=== PATIENT | male | born 1935 | race Caucasian/White ===

== ENCOUNTER 2017-07-14 15:36 | Emergency (ER) | payer OTHER ==
[~2017-07-14] VITALS: Ht 170.2 cm; Wt 73.9 kg
[~2017-07-14 15:36] MED LIST: ALPRAZOLAM 0.50.5 MG PO; AMITRIPTYLINE H25 M2 PO; ASPIRIN EC81 M1 PO; BENAZEPRIL HCL40 MG PO; FISH OIL SOFTG1 EACH PO; FOLIC ACID 40400 MC1 PO; PLAVIX 75 MG TA75 M1 PO; SIMVASTATIN80 MG PO; VITAMINC500 PO
[2017-07-14] MEDS ORDERED: ATORVASTATIN CA40 MG PO (15:49)
[2017-07-14 16:18] LABS: ABSOLUTE BASOPHILS 0.1 thou/uL (0.0-0.2); ABSOLUTE EOSINOPHILS 0.4 thou/uL (0.0-0.7); ABSOLUTE LYMPHOCYTES 1.6 thou/uL (0.8-5.3); ABSOLUTE MONOCYTES 0.7 thou/uL (0.0-1.2); ABSOLUTE NEUTROPHILS 3.7 thou/uL (1.6-8.1); BASOPHILS 1.6 %; EOSINOPHILS 6.9 %; HEMATOCRIT 43.2 % (42.0-52.0); HEMOGLOBIN 14.7 gm/dL (14.0-18.0); MONOCYTES 10.6 %; MPV 9.5 fl. (7.2-11.1); NUCLEATED RBCS 0 /100WBC; PLATELET COUNT* 170 thou/uL (150-400); POLYS 56.9 %; RBC 4.59 mil/uL (4.50-6.00); RDW-CV 13.1 % (10.5-14.5); WBC 6.6 thou/uL (4.0-11.0)
[2017-07-14 16:31] LABS: APTT 26.6 Seconds (25.0-31.3); CREATININE 1.3 mg/dL (0.6-1.3); POTASSIUM 3.9 mmol/L (3.5-5.1); PROTIME 9.8 Seconds (9.20-11.50)
[2017-07-14 16:35] LABS: ALBUMIN 3.5 g/dL (3.4-5.0); TOTAL BILIRUBIN 0.3 mg/dL (<0.1-1.0); TOTAL PROTEIN 6.7 g/dL (6.4-8.2)
[2017-07-14 16:38] LABS: URINE BILIRUBIN NEGATIVE (Negative); URINE BLOOD TRACE (Negative); URINE CLARITY CLEAR; URINE COLOR YELLOW; URINE GLUCOSE-RANDOM NEGATIVE (Negative); URINE KETONES NEGATIVE (Negative); URINE LEUKOCYTES NEGATIVE (Negative); URINE NITRITE NEGATIVE (Negative); URINE PROTEIN NEGATIVE (Negative); URINE SPECIFIC GRAVITY >= 1.030 (1.005-1.030); URINE UROBILINOGEN 0.2 E.U./dl (0.2-1.0)
[2017-07-14] MEDS ORDERED: PREDNISONE 10 M10 MG PO (18:26)
[2017-07-14] MEDS ORDERED: NORCO 5-325 TA1 EACH PO (18:26)
[2017-07-14 18:50] VITALS: BP 183/88
--- NOTE | 2017-07-15 10:52 | EKG ---
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 07/15/17 1052 1618 1618 Rafael Camara MD, FACC /EPI
== END 2017-07-14 18:51 | disposition home or self-care (01) ==
LOC: M.ERS 15:36
PROVIDERS: Physician Assistant
DX: M54.42 Lumbago with sciatica, left side (principal); L40.9 Psoriasis, unspecified; M19.90 Unspecified osteoarthritis, unspecified site; E78.00 Pure hypercholesterolemia, unspecified; I10 Essential (primary) hypertension; G25.81 Restless legs syndrome; G43.909 Migraine, unspecified, not intractable, without status migrainosus; I71.4 Abdominal aortic aneurysm, without rupture; E78.5 Hyperlipidemia, unspecified; Z90.49 Acquired absence of other specified parts of digestive tract

== ENCOUNTER 2017-07-28 12:21 | Emergency (ER) | payer OTHER ==
[~2017-07-28] VITALS: Ht 152.4 cm; Wt 77.4 kg
[~2017-07-28 12:21] MED LIST changes: +ATORVASTATIN CA40 MG PO; +NORCO 5-325 TA1 EACH PO; +PREDNISONE 10 M10 MG PO
[2017-07-28 13:22] LABS: HEMATOCRIT 43.9 % (42.0-52.0); HEMOGLOBIN 14.8 gm/dL (14.0-18.0); MCHC 33.7 g/dL (28.0-37.0); MCV 94.9 fL (80.0-100.0); MPV 9.3 fl. (7.2-11.1); NUCLEATED RBCS 0 /100WBC; PLATELET COUNT* 161 thou/uL (150-400); RBC 4.63 mil/uL (4.50-6.00); RDW-CV 13.3 % (10.5-14.5)
[2017-07-28 13:29] LABS: ANION GAP 9 mmol/L (7-16); BUN 17 mg/dL (7-18); CALCIUM 8.4 mg/dL (8.5-10.1); CHLORIDE 109 mmol/L (98-107); CO2 26 mmol/L (21-32); CREATININE 1.1 mg/dL (0.6-1.3); GLUCOSE 125 mg/dL (70-99); POTASSIUM 3.3 mmol/L (3.5-5.1); SODIUM 144 mmol/L (136-145)
[2017-07-28 13:43] LABS: ALBUMIN 2.9 g/dL (3.4-5.0); ALKALINE PHOSPHATASE 82 U/L (46-116); NT-PRO BRAIN NAT PEPTIDE 605 pg/mL (<300); SGOT 34 U/L (15-37); SGPT 53 U/L (30-65); TOTAL BILIRUBIN 0.5 mg/dL (<0.1-1.0); TOTAL PROTEIN 6.2 g/dL (6.4-8.2); TROPONIN-I LEVEL <0.06 ng/mL (<0.06)
[2017-07-28 13:45] LABS: ABSOLUTE LYMPHOCYTES 1.2 thou/uL (0.8-5.3); ABSOLUTE MONOCYTES 0.5 thou/uL (0.0-1.2); ABSOLUTE NEUTROPHILS 11.3 thou/uL (1.6-8.1)
[2017-07-28 13:46] LABS: PLATELET ESTIMATE ADEQUATE; TOXIC GRANULATION 1+
[2017-07-28 14:15] LABS: INFLUENZA A ANTIGEN None Detected (None Detect)
[2017-07-28 15:39] LABS: URINE BILIRUBIN NEGATIVE (Negative); URINE BLOOD NEGATIVE (Negative); URINE CLARITY CLEAR; URINE COLOR YELLOW; URINE GLUCOSE-RANDOM TRACE (Negative); URINE KETONES NEGATIVE (Negative); URINE LEUKOCYTES-REFLEX NEGATIVE (Negative); URINE NITRITE-REFLEX NEGATIVE (Negative); URINE PROTEIN NEGATIVE (Negative); URINE SPECIFIC GRAVITY 1.025 (1.005-1.030)
[2017-07-28] MEDS ORDERED: VENTOLIN HFA 1818 GM INH (16:05)
[2017-07-28] MEDS ORDERED: MUCINEX DM ER1 EACH PO (16:05)
[2017-07-28] MEDS ORDERED: TESSALON PERLE100 MG PO (16:05)
[2017-07-28 16:16] VITALS: BP 178/78
== END 2017-07-28 16:23 | disposition home or self-care (01) ==
LOC: M.ERS 12:21
PROVIDERS: Physician Assistant
DX: J11.1 Influenza due to unidentified influenza virus with other respiratory manifestations (principal); R10.30 Lower abdominal pain, unspecified; J40 Bronchitis, not specified as acute or chronic; M19.90 Unspecified osteoarthritis, unspecified site; I10 Essential (primary) hypertension; E78.00 Pure hypercholesterolemia, unspecified; E78.5 Hyperlipidemia, unspecified; Z98.890 Other specified postprocedural states

== ENCOUNTER → 2017-08-23 | Outpatient (CLI) | payer OTHER ==
[~2017-08-23] MED LIST changes: +BENTYL 20 MG TA20 M1 PO; +COLACE100 MG PO; +FLAGYL500 MG PO; +KEFLEX500 M2 PO; +MIRALAX17 G1 PO; +MUCINEX DM ER1 EACH PO; +NEURONTIN 300300 M1 PO; +PROTONIX40 M1 PO; +TESSALON PERLE100 MG PO; +VENTOLIN HFA 1818 GM INH
== END ==
LOC: M.ULTRA 10:14
DX: N28.1 Cyst of kidney, acquired (principal); K76.89 Other specified diseases of liver; I70.0 Atherosclerosis of aorta

== ENCOUNTER 2017-08-28 16:47 | Emergency (ER) | payer OTHER ==
[~2017-08-28] VITALS: Ht 170.2 cm; Wt 72.6 kg
[~2017-08-28 16:47] MED LIST changes: -BENTYL 20 MG TA20 M1 PO; -COLACE100 MG PO; -FLAGYL500 MG PO; -KEFLEX500 M2 PO; -MIRALAX17 G1 PO; -NEURONTIN 300300 M1 PO; -PROTONIX40 M1 PO
[2017-08-28] MEDS ORDERED: NEURONTIN 300300 M1 PO (16:55)
[2017-08-28] MEDS ORDERED: FLAGYL500 MG PO (16:56)
[2017-08-28] MEDS ORDERED: BENTYL 20 MG TA20 M1 PO (16:56)
[2017-08-28 17:17] LABS: ABSOLUTE BASOPHILS 0.1 thou/uL (0.0-0.2); ABSOLUTE EOSINOPHILS 0.1 thou/uL (0.0-0.7); ABSOLUTE LYMPHOCYTES 1.4 thou/uL (0.8-5.3); ABSOLUTE NEUTROPHILS 5.4 thou/uL (1.6-8.1); BASOPHILS 0.7 %; EOSINOPHILS 1.8 %; HEMATOCRIT 46.2 % (42.0-52.0); HEMOGLOBIN 15.8 gm/dL (14.0-18.0); LYMPHOCYTES 17.3 %; MCH 31.8 pg (26.0-34.0); MCHC 34.1 g/dL (28.0-37.0); MCV 93.2 fL (80.0-100.0); MONOCYTES 12.2 %; MPV 9.1 fl. (7.2-11.1); NUCLEATED RBCS 0 /100WBC; PLATELET COUNT* 203 thou/uL (150-400); RBC 4.95 mil/uL (4.50-6.00); RDW-CV 12.9 % (10.5-14.5); WBC 7.9 thou/uL (4.0-11.0)
[2017-08-28 17:26] LABS: ANION GAP 8 mmol/L (7-16); BUN 12 mg/dL (7-18); CHLORIDE 108 mmol/L (98-107); CO2 26 mmol/L (21-32); CREATININE 1.2 mg/dL (0.6-1.3); GLUCOSE 156 mg/dL (70-99); POTASSIUM 3.7 mmol/L (3.5-5.1); SODIUM 142 mmol/L (136-145)
[2017-08-28 17:33] LABS: ALBUMIN 3.6 g/dL (3.4-5.0); ALKALINE PHOSPHATASE 70 U/L (46-116); LIPASE 148 U/L (73-393); SGOT 71 U/L (15-37); SGPT 87 U/L (30-65); TOTAL BILIRUBIN 0.3 mg/dL (<0.1-1.0); TOTAL PROTEIN 6.8 g/dL (6.4-8.2); TROPONIN-I LEVEL <0.06 ng/mL (<0.06)
[2017-08-28 18:14] VITALS: BP 127/71
--- NOTE | 2017-08-29 16:32 | EKG ---
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: : 1935 Requested By: Clem Pabon Order Number: [id number] MD: Joshua Concepcion Measurements Intervals [place] Rate: 69 P: 11 MN: 187 QRS: -4 QRSD: 152 T: -25 QT: 424 QTc: 455 Interpretive Statements Sinus rhythm Right bundle branch block Baseline wander in lead(s) V2 Compared to ECG 07/14/2017 16:18:20 No significant changes Electronically Signed On 08-29-2017 16:32:17 CDT by Joshua Concepcion [email or web address] <ELECTRONICALLY SIGNED> By: Joshua Concepcion MD, [facility] 08/29/17 1632 08 08 Joshua Concepcion MD, FAC /EPI
== END 2017-08-28 18:15 | disposition home or self-care (01) ==
LOC: M.ERS 16:47
PROVIDERS: Family Medicine
DX: R10.9 Unspecified abdominal pain (principal); F41.9 Anxiety disorder, unspecified; L40.9 Psoriasis, unspecified; M19.90 Unspecified osteoarthritis, unspecified site; E78.00 Pure hypercholesterolemia, unspecified; G25.81 Restless legs syndrome; I10 Essential (primary) hypertension; G43.909 Migraine, unspecified, not intractable, without status migrainosus; I71.4 Abdominal aortic aneurysm, without rupture; E78.5 Hyperlipidemia, unspecified; Z90.49 Acquired absence of other specified parts of digestive tract

== ENCOUNTER 2018-01-18 09:31 | Inpatient (IN) | payer OTHER ==
[~2018-01-18] VITALS: Ht 175.3 cm; Wt 73.0 kg
[2018-01-18] VITALS (17 sets, daily range): BP systolic 92–145; BP diastolic 35–115
[~2018-01-18 09:31] MED LIST changes: +BENTYL 20 MG TA20 M1 PO; +FLAGYL500 MG PO; +NEURONTIN 300300 M1 PO
[2018-01-18] MEDS ORDERED: PROTONIX40 M1 PO (09:48)
[2018-01-18 09:56] LABS: HEMOGLOBIN 14.8 gm/dL (14.0-18.0); MCH 31.3 pg (26.0-34.0); MCHC 33.6 g/dL (28.0-37.0); MCV 93.3 fL (80.0-100.0); MPV 8.8 fl. (7.2-11.1); NUCLEATED RBCS 0 /100WBC; PLATELET COUNT* 138 thou/uL (150-400); RBC 4.71 mil/uL (4.50-6.00); RDW-CV 13.6 % (10.5-14.5); WBC 14.1 thou/uL (4.0-11.0)
[2018-01-18 10:06] LABS: ANION GAP 10 mmol/L (7-16); BUN 45 mg/dL (7-18); CALCIUM 8.5 mg/dL (8.5-10.1); CHLORIDE 100 mmol/L (98-107); CO2 24 mmol/L (21-32); CREATININE 2.2 mg/dL (0.6-1.3); GLUCOSE 134 mg/dL (70-99); POTASSIUM 4.4 mmol/L (3.5-5.1); SODIUM 134 mmol/L (136-145)
[2018-01-18 10:13] LABS: ALBUMIN 3.3 g/dL (3.4-5.0); ALKALINE PHOSPHATASE 64 U/L (46-116); LIPASE 147 U/L (73-393); SGOT 27 U/L (15-37); SGPT 31 U/L (30-65); TOTAL BILIRUBIN 0.8 mg/dL (<0.1-1.0); TOTAL PROTEIN 6.7 g/dL (6.4-8.2); TROPONIN-I LEVEL <0.06 ng/mL (<0.06)
[2018-01-18 10:27] LABS: ABSOLUTE MONOCYTES 0.8 thou/uL (0.0-1.2); ABSOLUTE NEUTROPHILS 13.3 thou/uL (1.6-8.1)
[2018-01-18 10:28] LABS: PLATELET ESTIMATE ADEQUATE
[2018-01-18 11:22] LABS: URINE BILIRUBIN NEGATIVE (Negative); URINE BLOOD TRACE (Negative); URINE CLARITY SL CLOUDY; URINE COLOR YELLOW; URINE GLUCOSE-RANDOM NEGATIVE (Negative); URINE KETONES NEGATIVE (Negative); URINE LEUKOCYTES-REFLEX NEGATIVE (Negative); URINE NITRITE-REFLEX NEGATIVE (Negative); URINE PROTEIN NEGATIVE (Negative); URINE SPECIFIC GRAVITY 1.015 (1.005-1.030); URINE UROBILINOGEN 0.2 E.U./dl (0.2-1.0)
[2018-01-18 13:52] LABS: BE -8.2 mmol/L (-2 to +3); PCO2 26.1 mmHg (35.0-45.0); PO2 221.8 mmHg (75.0-100.0); pH 7.378 (7.340-7.450)
[2018-01-19] VITALS (15 sets, daily range): BP systolic 90–136; BP diastolic 40–64
[2018-01-19 03:46] LABS: HEMATOCRIT 40.4 % (42.0-52.0); HEMOGLOBIN 13.5 gm/dL (14.0-18.0); MCH 31.6 pg (26.0-34.0); MCHC 33.6 g/dL (28.0-37.0); MPV 8.9 fl. (7.2-11.1); RBC 4.29 mil/uL (4.50-6.00); RDW-CV 13.7 % (10.5-14.5); WBC 7.2 thou/uL (4.0-11.0)
[2018-01-19 04:01] LABS: ALBUMIN 2.7 g/dL (3.4-5.0); CALCIUM 7.8 mg/dL (8.5-10.1); CREATININE 1.7 mg/dL (0.6-1.3); POTASSIUM 4.8 mmol/L (3.5-5.1); TOTAL BILIRUBIN 0.5 mg/dL (<0.1-1.0); TOTAL PROTEIN 5.2 g/dL (6.4-8.2)
--- NOTE | 2018-01-19 10:23 | EKG ---
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: LITO LOPEZ : 1935 Requested By: Clem Pabon Order Number: [id number] MD: Rafael Camara Measurements Intervals [place] Rate: 73 P: 9 SC: 193 QRS: 3 QRSD: 144 T: -19 QT: 394 QTc: 435 Interpretive Statements Sinus rhythm Right bundle branch block Inferior infarct, age indeterminate Compared to ECG 08/28/2017 17:09:47 no change Electronically Signed On 01-19-2018 10:23:29 CDT by Rafael Camara [email or web address] <ELECTRONICALLY SIGNED> By: Rafael Camara MD, [facility] 01/19/18 1023 0953 0953 Rafael Camara MD, [facility] /EPI
--- NOTE | 2018-01-19 10:25 | EKG ---
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: : 1935 Requested By: Rafael Camara Order Number: [id number] Leticia MD: Rafael Camara Measurements Intervals [place] Rate: 121 P: -27 MS: 146 QRS: 11 QRSD: 147 T: -17 QT: 329 QTc: 467 Interpretive Statements Sinus tachycardia Probable left atrial enlargement Right bundle branch block Inferior infarct, age indeterminate Baseline wander in lead(s) I,II,aVR Electronically Signed On 01-19-2018 10:25:00 CDT by Rafael Camara [email or web address] <ELECTRONICALLY SIGNED> By: Rafael Camara MD, [facility] 01/19/18 1025 1325 1325 Rafael Camara MD, [facility] /EPI
--- NOTE | 2018-01-19 10:30 | EKG ---
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
--- NOTE | 2018-01-19 11:32 | CON ---
[address] [address] CONSULTATION Name: JENNY ROBERTS Room: [address] ADM IN M.R.#: [id number] Admission: 01/18/18 Attend Phys: Milad Carter, Discharge: Date of : 37 Report #: [id number] THIS REPORT FOR: //name// CC: Darling Alex DIESEL MECHANIC CONSTRUCTION Milad Carter DATE OF SERVICE: 01/19/2018 Cardiology Consultation HISTORY OF PRESENT ILLNESS: The patient is an 82-year-old white male who I was asked to see in the hospital today after he complained of chest pain. The patient has never been admitted here to [facility] [place]. He receives most of his care at [facility]. The patient does have an extensive past medical history. He has had a previous left carotid endarterectomy at [facility] a couple of years ago. He has also had an abdominal aortic aneurysm stent graft placed at [facility] a couple of years ago. He apparently also has stent in his groin area. He is followed by Dr. Vyas in the vascular clinic. He stays fairly active. He denies a history of heart disease. He apparently has had a stress test in the past. The patient states recently he has had a headache for couple of weeks. He denied any blurred vision or vomiting. Lately, he said that he ached all over. He felt nauseated. His legs were aching and he felt weak. He finally came to the hospital yesterday and was admitted. He denied any fever, diarrhea, vomiting. He does claim that he ached all over. After he was admitted, he was lying in bed when he felt some discomfort in his chest. He was transferred to the ICU. Again, last night he felt some chest heaviness. I was asked to see him for further evaluation and treatment. He denied the pain radiating down his arms. He denied associated diaphoresis. He denied exertional dyspnea or edema. He has had no palpitations or syncope. PAST MEDICAL HISTORY: Otherwise, he has had history of prostate cancer, received radiation therapy. He has a history of hypertension, hyperlipidemia. No history of diabetes. MEDICATIONS: Consist of Lotensin, Xanax, aspirin, Lipitor, Protonix. ALLERGIES: He has no known drug allergies. FAMILY HISTORY: His mother had coronary bypass surgery. SOCIAL HISTORY: He is . He and his live in [place], [place]. 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 Quit smoking years ago. No alcohol abuse. REVIEW OF SYSTEMS: He has had no history of stroke, asthma, peptic ulcer disease, liver disease, kidney disease, psychiatric [place] [address] CONSULTATION Name: JENNY ROBERTS Room: [address] IN .R.#: [id number] Admission: 01/18/18 Attend Phys: Milad Carter, Discharge: Date of : 37 Report #: [id number] condition. PHYSICAL EXAMINATION: GENERAL: Revealed an elderly male, lying in bed. He appeared in no distress. VITAL SIGNS: He had blood pressure of 110/60, pulse is 60. He is afebrile. HEENT: He is anicteric. Conjunctivae pink. Mucous membranes moist. NECK: Veins nondistended. He had bilateral carotid bruits. Neck supple. CHEST: Clear to auscultation. CARDIOVASCULAR: Regular rate and rhythm without rub or murmur. ABDOMEN: Soft. EXTREMITIES: Had no edema. Dorsalis pedis pulse 2+ in the right, cannot be palpable in the left. SKIN: Cool and dry. NEUROLOGIC: Nonfocal. DATA: His ECG showed sinus rhythm with right bundle-branch block. His workup so far here at [facility] included CT scan of the abdomen and pelvis without contrast that showed liver cyst, renal cyst, and atherosclerosis of the aorta. The test was otherwise unremarkable. He actually had a CT scan of the head without contrast that showed no acute abnormality. His chest x-ray showed thoracic aortic stent graft, tortuous aortic arch. His lab work: BUN 33, creatinine 1.7. His troponins all 0.06. His white blood cell count 7.2, hemoglobin 13.5. IMPRESSION AND RECOMMENDATIONS: 1. Chest pain. No evidence of acute coronary syndrome. The patient does have risk factors for coronary artery disease. Because of his abnormal ECG, I would recommend pharmacologic nuclear stress testing. 2. Hypertension. The patient is on an MADIHA inhibitor. 3. Hyperlipidemia. The patient is on a statin drug. 4. History of headaches. CT scan of the head was unremarkable. 5. Abdominal pain. Reason unclear. 6. Previous placement of a thoracic aorta stent. The patient followed by Dr. Vyas. 7. Peripheral arterial disease with previous stents in his groin area. 8. Chronic back pain. 9. Diffuse muscle aches. Postulated statin drug. I would stop his Lipitor. <ELECTRONICALLY SIGNED> By: Rafael Camara MD, FACC 01/19/18 1132 0733 [id number] Camara MD, FACC /nt
[2018-01-19 15:46] LABS: URINE BILIRUBIN NEGATIVE (Negative); URINE BLOOD 3+ (Negative); URINE CLARITY CLEAR; URINE COLOR YELLOW; URINE GLUCOSE-RANDOM NEGATIVE (Negative); URINE KETONES TRACE (Negative); URINE LEUKOCYTES-REFLEX NEGATIVE (Negative); URINE NITRITE-REFLEX NEGATIVE (Negative); URINE PROTEIN NEGATIVE (Negative); URINE UROBILINOGEN 0.2 E.U./dl (0.2-1.0)
[2018-01-19 15:58] LABS: BACTERIA-REFLEX 1-9 Few /HPF (None Seen); CASTS None Seen /LPF (None Seen); CRYSTALS None Seen /LPF (None Seen); SQUAMOUS NONE SEEN /LPF (0-3); URINE RBC >20 Many /HPF (0-2); URINE WBC-REFLEX 0-5 Rare /HPF (0-5)
[2018-01-20] VITALS (8 sets, daily range): BP systolic 87–142; BP diastolic 50–75
[2018-01-20 04:56] LABS: ABSOLUTE EOSINOPHILS 0.2 thou/uL (0.0-0.7); ABSOLUTE LYMPHOCYTES 0.6 thou/uL (0.8-5.3); ABSOLUTE MONOCYTES 0.6 thou/uL (0.0-1.2); ABSOLUTE NEUTROPHILS 3.1 thou/uL (1.6-8.1); BASOPHILS 0.8 %; EOSINOPHILS 3.9 %; HEMATOCRIT 36.3 % (42.0-52.0); HEMOGLOBIN 12.2 gm/dL (14.0-18.0); LYMPHOCYTES 12.6 %; MCH 31.8 pg (26.0-34.0); MCHC 33.7 g/dL (28.0-37.0); MCV 94.4 fL (80.0-100.0); MONOCYTES 12.5 %; MPV 9.2 fl. (7.2-11.1); NUCLEATED RBCS 0 /100WBC; PLATELET COUNT* 99 thou/uL (150-400); POLYS 70.2 %; RBC 3.84 mil/uL (4.50-6.00); RDW-CV 13.8 % (10.5-14.5); WBC 4.5 thou/uL (4.0-11.0)
[2018-01-20 05:04] LABS: ALBUMIN 2.2 g/dL (3.4-5.0); ALKALINE PHOSPHATASE 105 U/L (46-116); ANION GAP 4 mmol/L (7-16); BUN 19 mg/dL (7-18); CALCIUM 7.5 mg/dL (8.5-10.1); CHLORIDE 103 mmol/L (98-107); CHOLESTEROL 116 mg/dL (<200); CO2 25 mmol/L (21-32); CREATININE 1.4 mg/dL (0.6-1.3); GLUCOSE 113 mg/dL (70-99); HDL CHOLESTEROL 31 mg/dL (>40); LDL CHOLESTEROL 69 mg/dL (<100); MAGNESIUM 1.9 mg/dL (1.8-2.4); POTASSIUM 4.8 mmol/L (3.5-5.1); SGOT 87 U/L (15-37); SGPT 112 U/L (30-65); SODIUM 132 mmol/L (136-145); TC:HDL 3.7 Ratio (Not establshd); TOTAL BILIRUBIN 0.3 mg/dL (<0.1-1.0); TOTAL PROTEIN 5.2 g/dL (6.4-8.2); TRIGLYCERIDE 82 mg/dL (<150); TROPONIN-I LEVEL <0.06 ng/mL (<0.06); VLDL 16 mg/dL (<40)
[2018-01-20 05:07] LABS: SERUM ASSESSMENT CLEAR
[2018-01-20] MEDS ORDERED: KEFLEX500 M2 PO (12:23)
--- NOTE | 2018-01-20 12:27 | 2DMMODE ---
[place] [address] 2 D/M-MODE ECHOCARDIOGRAM Name: ALEJANDRAJENNY Bailey Room: [address] IN [place]#: [id number] Admission: 01/18/18 Attend Phys: Milad Alcantar Discharge: Date of : 37 Date of Service: 01/20/18 1227 Report #: [id number] THIS REPORT FOR: //name// APPROVED REPORT Study performed: 01/20/2018 09:20:09 EXAM: Comprehensive 2D, Doppler, and color-flow Echocardiogram Patient Location: In-Patient Room #: 202 Status: routine BSA: 1.96 HR: 73 bpm BP: 95/51 mmHg Rhythm: NSR Other Information Study Quality: Good Indications Chest Pain ARF, dizziness, abdominal pain 2D Dimensions LVEF(%): 71.49 (>50%) IVSd: 10.38 (7-11mm) LVOT Diam: 18.55 (18-24mm) LVDd: 41.20 mm PWd: 8.90 (7-11mm) Ascending Ao: 35.50 (22-36mm) LVDs: 24.58 (25-40mm) Aortic Root: 32.19 mm Sue's LVEF: 71.49 % Volumes Left Atrial Volume (Systole) LA ESV Index: 20.60 mL/m2 Aortic Valve AoV Peak Yg.: 1.92 m/s AO Peak Gr.: 14.71 mmHg LVOT Max P.86 mmHg AO Mean Gr.: 9.39 mmHg LVOT Mean P.44 mmHg LVOT Max V: 0.85 m/s AO V2 VTI: 40.83 cm LVOT Mean V: 0.55 m/s WENDY (VTI): 1.09 cm2 LVOT V1 VTI: 16.49 [place] [address] 2 D/M-MODE ECHOCARDIOGRAM Name: JENNY ROBERTS Room: [address] IN .R.#: [id number] Admission: 01/18/18 Attend Phys: Milad Aclantar Discharge: Date of : 37 Date of Service: 01/20/18 1227 Report #: [id number] E/A Ratio: 0.55 MV Decel. Time: 176.12 ms MV E Max Yg.: 0.91 m/s MV PHT: 51.07 ms MVA (PHT): 4.31 cm2 TDI E/Lateral E': 7.58 E/Medial E': 6.07 Medial E' Yg.: 0.15 m/s Lateral E' Yg.: 0.12 m/s Pulmonary Valve PV Peak Yg.: 1.06 m/s PV Peak Gr.: 4.50 mmHg Tricuspid Valve RAP Estimate: 5.00 mmHg TR Peak Gr.: 26.86 mmHg RVSP: 31.86 mmHg PA Pressure: 31.86 mmHg Left Ventricle The left ventricle is normal size. There is normal LV segmental wall motion. There is normal left ventricular wall thickness. Left ventricular systolic function is normal. The left ventricular ejection fraction is within the normal range. LVEF is 60-65%. Grade I - abnormal relaxation pattern. Right Ventricle The right ventricle is normal size. The right ventricular systolic function is normal. Atria The left atrium size is normal. Right atrium is dilated. Aortic Valve Mild aortic valve sclerosis. Mild aortic regurgitation. Mild aortic stenosis. Mitral Valve Mild mitral annular calcification. Mild mitral regurgitation. No evidence of mitral valve stenosis. Tricuspid Valve The tricuspid valve is normal in structure. Moderate to severe tricuspid regurgitation. Mild pulmonary hypertension[place] [address] 2 D/M-MODE ECHOCARDIOGRAM Name: JENNY ROBERTS Room: [address]#: [id number] Admission: 01/18/18 Attend Phys: Milad Alcantar Discharge: Date of : 37 Date of Service: 01/20/18 1227 Report #: [id number] The pulmonary valve is normal in structure. Trace pulmonic regurgitation. Great Vessels The aortic root is normal in size. IVC is normal in size and collapses with >50% inspiration Pericardium There is no pericardial effusion. <Conclusion> The left ventricle is normal size. There is normal left ventricular wall thickness. Left ventricular systolic function is normal. The left ventricular ejection fraction is within the normal range. LVEF is 60-65%. Grade I - abnormal relaxation pattern. The right ventricle is normal size. The left atrium size is normal. Mild aortic valve sclerosis. Mild aortic regurgitation. Mild aortic stenosis. Mild mitral annular calcification. Mild mitral regurgitation. The tricuspid valve is normal in structure. IVC is normal in size and collapses with >50% inspiration There is no pericardial effusion. There is normal LV segmental wall motion. <ELECTRONICALLY SIGNED> By: Trey Parsons MD, FACC 01/20/18 122 26 26 Trey Parsons MD, FACC /INF
--- NOTE | 2018-01-20 12:57 | CON ---
[address] [address] CONSULTATION Name: JENNY ROBERTS Room: [address] IN M.R.#: [id number] Admission: 01/18/18 Attend Phys: Milad Carter, Discharge: Date of : 37 Report #: [id number] THIS REPORT FOR: //name// CC: Darling Alex Milad Carter DATE OF SERVICE: 01/19/2018 CONSULT REQUESTED BY: Milad Carter MD INDICATION FOR CONSULTATION: Chest pain, possible hypoxia. HISTORY OF PRESENT ILLNESS: This is an 82-year-old gentleman, past medical history includes history of aortic disease. He has had stents placed in his aorta. His previous workup at [facility]. I do not have the records available. He has not previously been admitted to [facility]. He only has a remote history of smoking, discontinued in 1978. He has not previously been diagnosed with respiratory disease. I do not know his baseline renal function. At this time, the patient is initially admitted yesterday, 01/18. The patient had been complaining of dizziness at home. He had had a poor appetite. He does report a high-grade fever, perhaps around 101 degrees Fahrenheit at home. He had had a generalized weakness, was complaining of headache, as well as neck pain on initial presentation. He also did complain of pain in his abdomen and reported that he was constipated. When asked directly, he does state that he has also had a nasal discharge over the last several days and also has been having headaches. Upon admission, the patient did not have any shortness of breath or chest pain, did not have any cough either. Yesterday, while he was on the floor, he described that he was having chest pain. When asked him directly, he states in fact that his entire body was hurting and it was not particularly pain in his chest. He described the pain in his body to be poorly localized, had pain in his abdomen and neck, head, as well as extremities as well. He had poorly localized chest pain as well. The patient reports that he was receiving a medication at that time, he attributes pain to the medication he received, but is not known to me as to which medication he is referring to. At that time, he also was noted to be having some bluish discoloration, was placed on a nonrebreather mask. An arterial blood gas was performed. This in fact shows a high pO2 of 222. He does have a metabolic acidosis though with a bicarbonate of 15. It is not defined as to whether the patient in fact was hypoxemic or he had a poor reading on a pulse oximetry. There is no documented hypoxia. As noted above, the patient also was in acute renal failure with a creatinine of 2.2. He has been fluid resuscitated while I was dictating this. His previous creatinine from previous admission did become available. It is 1.1, therefore he is in acute renal failure. He has been receiving IV fluids[place] [address] CONSULTATION Name: JENNY ROBERTS Room: [address] IN [facility]#: [id number] Admission: 01/18/18 Attend Phys: Milad Carter, Discharge: Date of : 37 Report #: [id number] this. He has had low blood pressures with the 90s systolic. We However, he has not required pressors. He currently is afebrile. He no longer has any chest pain. There is no shortness of breath or cough. There is no sore throat. There is no pain in his legs. There is no swelling of lower extremities. REVIEW OF SYSTEMS: The patient answered with negative for 12 questions for review of systems except as mentioned above. PAST MEDICAL HISTORY: He has a history of aortic disease, has had an aortic stent or graft placed at [facility] a few years ago. I do not have details available. I do not have a measure of his left ventricular ejection fraction available. His baseline creatinine is 1.1. Also history of prostate cancer, has had radiation therapy, hyperlipidemia, hypertension. There is mention of both, Xanax, as well as Protonix on his own medication list. The reasons why these were prescribed are not known to me at this time. The patient is reported to have had psoriatic arthritis, restless legs syndrome, broken jaw, appendectomy, rib fractures migraines reported to have borderline hyperglycemia. No firm diagnosis of diabetes in the past. ID extends. ALLERGIES: No known drug allergies. FAMILY HISTORY: No pertinent family history. SOCIAL HISTORY: History of smoking more than a pack a day, as well as heavy alcohol intake. He discontinued both in 1978 and has not had a heavy alcohol use or smoking since then. There is no known history of illegal drug use. CURRENT MEDICATIONS: List in [facility] [facility] reviewed. HOME MEDICATIONS: List also in [facility] reviewed. PHYSICAL EXAMINATION: GENERAL: Alert, awake and oriented, does not appear to be in any distress at this time. VITAL SIGNS: Has a pulse of 65 and blood pressure of 113/48, but he is well perfused on 2 L nasal cannula. He is saturating close to 100%. He is afebrile with a temperature of 36.9. HEENT: Head is normocephalic and atraumatic. Pupils are equal and reactive. There is no throat erythema. NECK: Does not show raised JVP, asymmetry, mass or lymph nodes. CHEST: Symmetrical expansion on inspection and palpation. Auscultation of the chest is clear. HEART: Regular. There is no murmur. ABDOMEN: Soft and nontender. EXTREMITIES: Lower extremities show no edema, no calf tenderness. SKIN: [place] [address] CONSULTATION Name: JENNY ROBERTS [place] Room: [address] IN R.#: [id number] Admission: 01/18/18 Attend Phys: Milad Carter, Discharge: Date of : 37 Report #: [id number] NEUROLOGIC: Moves all extremities bilaterally equally and spontaneously with no focal deficit identified. DATA: The patient's CT abdomen and pelvis films, as well as the films of lower chest are reviewed and I reviewed the entire report. There are vague radiopaque densities at bilateral lung bases, likely areas of scarring or atelectasis. Small infiltrates are not ruled out. The patient's lab work showing acute renal failure as mentioned above, as well as mild decrease in platelet level at 2107 and an arterial blood gas showing a metabolic acidosis as described [facility], reviewed. ASSESSMENT AND PLAN: 1. Viral respiratory/gastrointestinal infection/possible small pulmonary infiltrates. The patient's CT of the abdomen and pelvis does show a small radiopaque densities. These are likely small areas of scar or atelectasis. I cannot rule out small infiltrates; however, appears more likely that the patient had a viral infection, which has led to dehydration and acute renal failure. Regardless, the patient currently is on ceftriaxone, which will cover for the possibility of bacterial infections. 2. Acute renal failure with metabolic acidosis and dehydration. Therapy at this time is with fluid resuscitation. The patient is already receiving IV fluids. I agree with the same. We will also check a magnesium level and if low, will recommend magnesium replacement. 3. Episode of chest pain, no definite evidence of a respiratory etiology. The patient is planned for a stress test by the cardiology service tomorrow. I considered the possibility of thromboembolism, appears to be fairly unlikely at this time. Regardless, I did request an echocardiogram to look at the right heart pressures. I will also check a D-dimer. Note that D-dimer will only be significant. If it is low, the patient has other reasons for having a high D-dimer. but suspicion of a pulmonary embolism is fairly low at this time and the patient's creatinine is elevated. I intend to hold off on further investigations for pulmonary emboli at this time. 4. Mild thrombocytopenia. I suggest watching platelets. 5. Past medical history of aortic aneurysm status post stent. Thanks for this consultation. <ELECTRONICALLY SIGNED> By: Devyn Blackwood MD 01/20/18 1257 1157 [id number] Blackwood MD /nt
[2018-01-20] MEDS ORDERED: COLACE100 MG PO (19:11)
[2018-01-20] MEDS ORDERED: MIRALAX17 G1 PO (19:12)
--- NOTE | 2018-01-21 16:14 | CARDNUC ---
[place] [address] CARDIAC NUCLEAR IMAGING REPORT Name: JENNY ROBERTS Bailey Room: [address] IN [facility]#: [id number] Admission: 01/18/18 Attend Phys: Milad Alcantar Discharge: 01/20/18 Date of : 37 Date of Service: 01/21/18 1614 Report #: [id number] THIS REPORT FOR: //name// APPROVED REPORT Imaging Protocol: Rest Tc-99m/Stress Tc-99m 1 day Study performed: 01/19/2018 07:43:00 Indication: Chest pain, DIZZINESS, ARF, RBBB. Patient Location: In-Patient Room #: [facility] Stress Tech: Melisa Vergara Stress Nurse: Jinny Estrada RN NM Tech:MARILY Soares Ht: 5 ft 9 in Wt: 176 lbs BSA: 1.96 m2 BMI: 25.98 Medical History Medical History: PCI, AORTIC STENT/ANEURYSM Medications: ASA 81 MG, LABETALOL Allergies: No known drug allergies Cardiac Risk Factors: Age, Hyperlipidemia, HTN, Past Smoker, FHX of CAD Previous Cardiac Procedures: AORIC ANEURYSM STENT Exercise History: Indeterminate Resting Data Rest SPECT myocardial perfusion imaging was performed in supine position 30 minutes following the intravenous injection of 11.1 mCi of Tc-99m Sestamibi. Time of rest injection: 1150 Date: 01/20/2018 Time of rest imagin The images were gated to evaluate regional wall motion and calculate left ventricular ejection fraction. Administration Route: IV Pharmacologic Stress Pharmacologic stress test was performed by injecting Regadenoson 0.4 mg IV push over 10-15 seconds immediately followed by the intravenous injection of 32.2 mCi of Tc-99m Sestamibi. Time of stress injection: 1340 Time of stress imagin Administration Route: IV Gated Stress SPECT was performed 40 [place] [address] CARDIAC NUCLEAR IMAGING REPORT Name: JENNY ROBERTS Room: [address] .R.#: [id number] Admission: 01/18/18 Attend Phys: Milad Alcantar Discharge: 01/20/18 Date of : 37 Date of Service: 01/21/18 1614 Report #: [id number] injection. The images were gated to evaluate regional wall motion and calculate left ventricular ejection fraction. Prone imaging was performed. Stress Test Details Stress Test: Pharmacologic stress testing performed using 0.4 mg of regadenoson per 5 mL given IV over 10 seconds. Reason for pharmacologic stress test: physical limitation. HR Max Heart Rate (APMHR): 139 bpm Resting HR: 76 bpm Target HR (85% APMHR): 118 bpm Max HR Achieved: 77 bpm % of APMHR: 55 Recovery HR: 85 bpm BP Resting BP: 142/102 mmHg Recovery BP: 126/75 mmHg ECG Resting ECG: Sinus Rhythm, RBBB Stress ECG: Sinus Rhythm, RBBB ST Change: None Arrhythmia: None Recovery ECG: Sinus Rhythm, RBBB Recovery ST Change: None Recovery Arrhythmia: None Clinical Reason for Termination: Completed protocol Stress Symptoms: None Exercise duration: 0 min sec Exercise capacity: 1.00 METs The patient tolerated Lexiscan infusion without significant symptoms. Nurse Comments PATIENT TOLERATED TEST WELL, B/P IN LEFT ARM MUCH HIGHER THAN RIGHT ARM R/T PAST SURGERY. NO COMPLAINTS. Stress ECG Conclusion The baseline 12-lead EKG shows sinus rhythm with right bundle-branch block. No significant ST or T-wave abnormalities were noted. EKGs obtained during and post Lexiscan infusion show sinus rhythm with no significant ST or T wave changes when compared [place] [address] CARDIAC NUCLEAR IMAGING REPORT Name: JENNY ROBERTS Room: [address]#: [id number] Admission: 01/18/18 Attend Phys: Milad Alcantar Discharge: 01/20/18 Date of : 37 Date of Service: 01/21/18 1614 Report #: [id number] were no significant stress-induced arrhythmias. Study Quality Study: Good Artifact: Mild Diaphragmatic artifact Study Data At rest, the left ventricular ejection fraction was 79%.. Post stress, the left ventricular ejection was 84%.. TID = 0.81. Perfusion Perfusion images obtained in the supine position at rest and post stress show very mild photopenia of the inferior wall consistent with diaphragmatic attenuation artifact. Post stress prone imaging shows uniform uptake of the radioisotope throughout the myocardium. Wall Motion Normal left ventricular wall motion. Nuclear Conclusion ECG Findings: negative for ischemia Clinical Findings: negative for ischemia Nuclear Findings: negative for ischemia Exercise Capacity: not assessed Left Ventricular Function: normal Risk Study: low Myocardial perfusion images show no defect to suggest infarct or ischemia. Left ventricular systolic function is normal on gated studies. This is a low risk study. <Conclusion> The baseline 12-lead EKG shows sinus rhythm with right bundle-branch block. No significant ST or T-wave abnormalities were noted. EKGs obtained during and post Lexiscan infusion show sinus rhythm with no significant ST or T wave changes when compared to baseline. There were no significant stress-induced arrhythmias. <ELECTRONICALLY SIGNED> By: Joshua Concepcion MD, FACC 01/21/18 1614 1614 161 Joshua Concepcion MD, FACC /INF
[2018-01-23 02:05] LABS: ADENOVIRUS Negative (Negative); INFLUENZA A Negative (Negative); INFLUENZA B Negative (Negative); METAPNEUMOVIRUS Negative (Negative); PARAINFLUENZA 1 Negative (Negative); PARAINFLUENZA 2 Negative (Negative); PARAINFLUENZA 3 Negative (Negative); RHINOVIRUS Negative (Negative); RSV A Negative (Negative); RSV B Negative (Negative)
== END 2018-01-20 19:38 | disposition home or self-care (01) | DRG 177 ==
LOC: M.ERS 09:31 → M.TBA-ER 11:57 → M.ICU 11:57 → M.2W 11:57 → M.ICU 14:00 → M.2W 01-19 16:56
PROVIDERS: Family Medicine; Internal Medicine Cardiovascular Disease; Internal Medicine Critical Care Medicine; ADMIT Family Medicine
DX: J15.6 Pneumonia due to other Gram-negative bacteria (principal); J96.01 Acute respiratory failure with hypoxia; N17.9 Acute kidney failure, unspecified; J44.1 Chronic obstructive pulmonary disease with (acute) exacerbation; A09 Infectious gastroenteritis and colitis, unspecified; E87.2 Acidosis; E44.0 Moderate protein-calorie malnutrition; N39.0 Urinary tract infection, site not specified; R65.10 Systemic inflammatory response syndrome (SIRS) of non-infectious origin without acute organ dysfunction; M19.90 Unspecified osteoarthritis, unspecified site; E78.00 Pure hypercholesterolemia, unspecified; G25.81 Restless legs syndrome; I10 Essential (primary) hypertension; G43.909 Migraine, unspecified, not intractable, without status migrainosus; E78.5 Hyperlipidemia, unspecified; I73.9 Peripheral vascular disease, unspecified; G89.29 Other chronic pain; M54.9 Dorsalgia, unspecified; E86.0 Dehydration; D69.6 Thrombocytopenia, unspecified; I71.4 Abdominal aortic aneurysm, without rupture; D72.829 Elevated white blood cell count, unspecified; I95.9 Hypotension, unspecified; F41.9 Anxiety disorder, unspecified; Z95.820 Peripheral vascular angioplasty status with implants and grafts; Z85.46 Personal history of malignant neoplasm of prostate; Z92.3 Personal history of irradiation; Z82.49 Family history of ischemic heart disease and other diseases of the circulatory system; Z87.891 Personal history of nicotine dependence; Z90.49 Acquired absence of other specified parts of digestive tract; Z68.23 Body mass index [BMI] 23.0-23.9, adult

== ENCOUNTER → 2018-06-17 | Outpatient (CLI) | payer OTHER ==
[~2018-06-17] MED LIST changes: +COLACE100 MG PO; +KEFLEX500 M2 PO; +MIRALAX17 G1 PO; +PROTONIX40 M1 PO
== END ==
LOC: M.NUC 06-05 11:10
DX: R10.84 Generalized abdominal pain (principal)

== ENCOUNTER → 2018-12-29 | Outpatient (CLI) | payer OTHER ==
--- NOTE | 2019-01-06 08:39 | PF ---
[address] [address] PULMONARY FUNCTION REPORT Name: JENNY ROBERTS Room: [facility]#: [id number] Admission: 12/29/18 Attend Phys: Mathew Garza DO Discharge: Date of : 37 Report #: [id number] THIS REPORT FOR: //name// CC: Mathew Acosta DATE OF SERVICE: 12/29/2018 The FEV1/FVC ratio was decreased to 62% with a forced vital capacity is normal at 112%. The FEV1 is also normal at 99%. The patient's NWW88-66 is decreased to 53%. After the administration of a bronchodilator, there is a 36% increase in SJE87-14. There is no significant change in the forced vital capacity or FEV1. The patient's post-bronchodilator FEV1 is noted to be 2.52 liters. The patient's flow volume loop is noted to be concave upwards. The total lung capacity is minimally decreased to 79%. The residual volume; however, is significantly decreased to 47%. The patient's DLCO as adjusted for hemoglobin is normal at 83%. IMPRESSION: 1. Mild obstruction with some evidence of reversibility as the GII27-33 does increase after the administration of a bronchodilator, above average values for FVC and FEV1 with significant reduction in the ratio could indicate that the severity of the obstruction may have been underestimated during the study. It is possible that the underlying obstruction in fact is moderate. 2. There is mild restriction on lung volumes noted as above as opposed to hyperinflation expected with obstructive lung disease. Therefore, suggest evaluation for possible etiologies of restriction. 3. The DLCO as adjusted for hemoglobin is normal at 83%. <ELECTRONICALLY SIGNED> By: Tyler Munoz MD 01/06/19 0839 1429 [id number] Blackwood MD /nt
== END ==
LOC: M.PUL 12:57
DX: J98.11 Atelectasis (principal); R05 Cough

== ENCOUNTER → 2019-02-05 | Outpatient (CLI) | payer OTHER ==
[2019-02-05 14:01] LABS: CREATININE 1.2 mg/dL (0.6-1.3)
== END ==
LOC: M.LAB 12:58 → M.CT 14:00
PROVIDERS: Family Medicine
DX: K76.89 Other specified diseases of liver (principal); I77.4 Celiac artery compression syndrome; I70.202 Unspecified atherosclerosis of native arteries of extremities, left leg; K59.04 Chronic idiopathic constipation; R10.84 Generalized abdominal pain; Z90.49 Acquired absence of other specified parts of digestive tract

== ENCOUNTER 2019-03-30 12:13 | Emergency (ER) | payer OTHER ==
[~2019-03-30] VITALS: Ht 170.2 cm; Wt 71.2 kg
[2019-03-30 12:48] LABS: ABSOLUTE BASOPHILS 0.1 thou/uL (0.0-0.2); ABSOLUTE EOSINOPHILS 0.3 thou/uL (0.0-0.7); ABSOLUTE LYMPHOCYTES 1.3 thou/uL (0.8-5.3); ABSOLUTE MONOCYTES 0.9 thou/uL (0.0-1.2); ABSOLUTE NEUTROPHILS 7.1 thou/uL (1.6-8.1); BASOPHILS 1.1 %; EOSINOPHILS 2.6 %; HEMATOCRIT 50.2 % (42.0-52.0); HEMOGLOBIN 17.1 gm/dL (14.0-18.0); LYMPHOCYTES 13.6 %; MCH 32.1 pg (26.0-34.0); MCV 94.6 fL (80.0-100.0); MPV 8.8 fl. (7.2-11.1); NUCLEATED RBCS 0 /100WBC; PLATELET COUNT* 196 thou/uL (150-400); POLYS 73.7 %; RBC 5.31 mil/uL (4.50-6.00); RDW-CV 12.8 % (10.5-14.5); WBC 9.7 thou/uL (4.0-11.0)
[2019-03-30 12:56] LABS: CALCIUM 8.9 mg/dL (8.5-10.1); CREATININE 1.4 mg/dL (0.6-1.3); POTASSIUM 4.1 mmol/L (3.5-5.1)
[2019-03-30 13:01] LABS: ALBUMIN 3.7 g/dL (3.4-5.0); TOTAL BILIRUBIN 0.6 mg/dL (<0.1-1.0)
[2019-03-30 15:13] LABS: URINE BILIRUBIN NEGATIVE (Negative); URINE BLOOD NEGATIVE (Negative); URINE CLARITY CLEAR; URINE COLOR YELLOW; URINE GLUCOSE-RANDOM NEGATIVE (Negative); URINE KETONES NEGATIVE (Negative); URINE LEUKOCYTES-REFLEX NEGATIVE (Negative); URINE NITRITE-REFLEX NEGATIVE (Negative); URINE PROTEIN NEGATIVE (Negative); URINE SPECIFIC GRAVITY 1.025 (1.005-1.030); URINE UROBILINOGEN 0.2 E.U./dl (0.2-1.0)
[2019-03-30] MEDS ORDERED: NORCO 5-325 TA1 EAC1 PO (15:28)
[2019-03-30] MEDS ORDERED: ZOFRAN ODT4 MG DISSOLVE (15:28)
[2019-03-30 16:00] VITALS: BP 139/69
--- NOTE | 2019-03-31 17:13 | EKG ---
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: [place] : 1935 Requested By: Albert Torres Order Number: [id number] MD: Joshua Concepcion Measurements Intervals [place] Rate: 67 P: 31 NH: 215 QRS: -25 QRSD: 153 T: -24 QT: 421 QTc: 445 Interpretive Statements Sinus rhythm Borderline prolonged NH interval Right bundle branch block Baseline wander in lead(s) I,III,aVL Compared to ECG 01/18/2018 22:28:17 Myocardial infarct finding no longer present Electronically Signed On 03-31-2019 17:13:01 [facility] by Joshua Concepcion [email or web address] <ELECTRONICALLY SIGNED> By: Joshua Concepcion MD, FAC 03/31/19 1713 1314 1314 Joshua Concepcion MD, [facility] /EPI
== END 2019-03-30 16:20 | disposition home or self-care (01) ==
LOC: M.ERS 12:13
PROVIDERS: Emergency Medicine Emergency Medical Services
DX: G89.29 Other chronic pain (principal); R10.32 Left lower quadrant pain; I10 Essential (primary) hypertension; E78.00 Pure hypercholesterolemia, unspecified; G25.81 Restless legs syndrome; M19.90 Unspecified osteoarthritis, unspecified site; G43.909 Migraine, unspecified, not intractable, without status migrainosus; Z90.49 Acquired absence of other specified parts of digestive tract

== ENCOUNTER 2020-01-14 16:53 | Emergency (ER) | payer OTHER ==
[~2020-01-14] VITALS: Ht 170.2 cm; Wt 69.4 kg
[~2020-01-14 16:53] MED LIST changes: +NORCO 5-325 TA1 EAC1 PO; +ZOFRAN ODT4 MG DISSOLVE
[2020-01-14] MEDS ORDERED: DILTIAZEM 24HR360 M1 PO (17:09)
[2020-01-14] MEDS ORDERED: SENOKOT8.6 MG PO (17:10)
[2020-01-14 18:27] LABS: ABSOLUTE BASOPHILS 0.1 thou/uL (0.0-0.2); ABSOLUTE EOSINOPHILS 0.3 thou/uL (0.0-0.7); ABSOLUTE LYMPHOCYTES 1.3 thou/uL (0.8-5.3); ABSOLUTE MONOCYTES 1.3 thou/uL (0.0-1.2); ABSOLUTE NEUTROPHILS 9.9 thou/uL (1.6-8.1); EOSINOPHILS 2.2 %; HEMATOCRIT 46.4 % (42.0-52.0); LYMPHOCYTES 9.8 %; MCH 32.7 pg (26.0-34.0); MCHC 34.5 g/dL (28.0-37.0); MCV 94.8 fL (80.0-100.0); MONOCYTES 10.2 %; MPV 8.8 fl. (7.2-11.1); NUCLEATED RBCS 0 /100WBC; PLATELET COUNT* 190 thou/uL (150-400); POLYS 76.8 %; RBC 4.89 mil/uL (4.50-6.00); RDW-CV 13.3 % (10.5-14.5); WBC 12.9 thou/uL (4.0-11.0)
[2020-01-14 18:49] LABS: CALCIUM 8.9 mg/dL (8.5-10.1); CREATININE 1.4 mg/dL (0.6-1.3); POTASSIUM 4.6 mmol/L (3.5-5.1)
[2020-01-14 18:51] LABS: ALBUMIN 3.4 g/dL (3.4-5.0); TOTAL BILIRUBIN 0.4 mg/dL (<0.1-1.0); TOTAL PROTEIN 6.5 g/dL (6.4-8.2)
[2020-01-14 20:50] LABS: URINE BILIRUBIN NEGATIVE (Negative); URINE BLOOD NEGATIVE (Negative); URINE CLARITY CLEAR; URINE COLOR YELLOW; URINE GLUCOSE-RANDOM NEGATIVE (Negative); URINE KETONES NEGATIVE (Negative); URINE LEUKOCYTES-REFLEX NEGATIVE (Negative); URINE NITRITE-REFLEX NEGATIVE (Negative); URINE PROTEIN NEGATIVE (Negative); URINE SPECIFIC GRAVITY 1.015 (1.005-1.030); URINE UROBILINOGEN 0.2 E.U./dl (0.2-1.0)
[2020-01-14] MEDS ORDERED: ONDANSETRON HCL4 M2 PO (20:53)
[2020-01-14 21:40] VITALS: BP 149/47
--- NOTE | 2020-01-15 14:03 | EKG ---
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 [employer]: [place] : 1935 Requested By: Ana Davila Order Number: [id number] MD: Trey Parsons Measurements Intervals [place] Rate: 61 P: 6 W[place]: 189 QRS: -1 QRSD: 152 T: -17 QT: 418 QTc: 421 Interpretive Statements Sinus rhythm Atrial premature complex Right bundle branch block Compared to ECG 03/30/2019 13:14:32 Atrial premature complex(es) now present Electronically Signed On 01-15-2020 14:02:47 CDT by Trey Parsons [email or web address] <ELECTRONICALLY SIGNED> By: Trey Parsons MD, [facility] 01/15/20 1402 185 52 Trey Parsons MD, [facility] /EPI
== END 2020-01-14 21:41 | disposition home or self-care (01) ==
LOC: M.ERS 16:53
PROVIDERS: Nurse Practitioner Family
DX: E86.0 Dehydration (principal); R10.84 Generalized abdominal pain; G89.29 Other chronic pain; R19.7 Diarrhea, unspecified; L40.9 Psoriasis, unspecified; E78.00 Pure hypercholesterolemia, unspecified; G25.81 Restless legs syndrome; I10 Essential (primary) hypertension; G43.909 Migraine, unspecified, not intractable, without status migrainosus; E78.5 Hyperlipidemia, unspecified

== ENCOUNTER → 2020-03-03 | Outpatient (CLI) | payer OTHER ==
[~2020-03-03] MED LIST changes: +DILTIAZEM 24HR360 M1 PO; +HYDROCODON-ACE1 EAC7 PO; +MOVANTIK12.5 MG PO; +ONDANSETRON HCL4 M2 PO; +SENOKOT8.6 MG PO
--- NOTE | 2020-03-22 12:48 | PAINCON ---
[address] [address] PAIN MANAGEMENT CONSULTATION Name: JENNY ROBERTS Room: [facility]#: [id number] Admission: 03/03/20 Attend Phys: Luly Dennis MD Discharge: Date of : 37 Report #: [id number] THIS REPORT FOR: //name// cc: Mathew Garza Adam J DO ~ CC: Mathew Dennis DATE OF SERVICE: 03/03/2020 CHIEF COMPLAINT: "Abdominal pain, I have had radiation and prostate surgery." HISTORY: The patient is an 84-year-old gentleman who has been referred to the Pain Clinic for evaluation. The patient has been having pain since 2018. He suffers from discomfort in the abdominal area. He states that he has had radiation treatment associated with prostate cancer. He continues to have pain, which is problematic after eating. Notes that his pain improves sometimes with use of heat on his stomach. He describes his overall discomfort as continuous, cramping, aching, and throbbing. He rates it as a 3/9 today. He is not taking any pain medications senior care. ALLERGIES: No known drug allergies. CURRENT MEDICATIONS: Lipitor 40 mg, pantoprazole 40 mg, diltiazem 360 mg, alprazolam 1 mg, Zolpidem 10 mg, aspirin 81 mg, Senokot, MiraLax, fluticasone 0.005%, hyoscyamine 1.25 mg q. 6 hours p.r.n. PAST MEDICAL HISTORY: Psoriasis, arthritis, hypercholesterolemia, restless leg syndrome, hypertension, migraine, borderline diabetes, abdominal aortic aneurysm, hyperlipidemia. PAST SURGICAL HISTORY: Cholecystectomy in 09/2017, stents in the aorta in 2015, history of broken jaw, appendectomy, history of broken ribs. SOCIAL HISTORY: He is retired. REVIEW OF SYSTEMS: Decreased appetite, weakness, hearing loss, shortness of breath when lying flat, frequent cough, loss of appetite, change in bowel movements, constipation, abdominal pain, frequent urination, joint pain, joint stiffness, weakness of muscles, memory loss, confusion, nervousness, insomnia. PAIN CLINIC ASSESSMENT AND PQRS: 1. Height 5 feet 7 inches, weight 163 pounds, BMI is 25. 2. Vital signs: Blood pressure 151/70, heart rate 83, respiratory rate 16, room air saturation 96%, temperature 97.5. 3. Pain intensity: 10. [place] [address] PAIN MANAGEMENT CONSULTATION Name: JENNY ROBERTS Room: [facility]#: [id number] Admission: 03/03/20 Attend Phys: Luly Dennis MD Discharge: Date of : 37 Report #: [id number] 4. Fall history: The patient has not fallen in the last 3 months. 5. Blood thinner: The patient is not on a blood thinning medication. 6. Hypertension: The patient is being treated for hypertension. 7. Opioids greater than 6 weeks: The patient receives medications from his primary. 8. Risk assessment tool: Low for opioid use. 9. Functional assessment tool: Reviewed. 10. Recreational drug use: The patient denies. 11. Tobacco: The patient denies. 12. Alcohol: The patient denies frequent use of alcoholic beverages. PHYSICAL EXAMINATION: GENERAL: The patient is a well-developed, well-nourished, white male. He is accompanied by his . He has facial covering in place. NECK: Without adenopathy. CARDIOVASCULAR: The patient states that he has a history of heart murmur. LUNGS: Generally clear. GASTROINTESTINAL: The patient complains of pain in the abdominal area without distention. Bowel sounds active. MUSCULOSKELETAL: Upper extremity muscle strength is judged to be 5-/5 for the major muscle groups in the upper extremity. Lower extremity muscle strength is judged to be 5-/5 for the major muscle groups in the lower extremity. IMPRESSION: 1. Chronic abdominal pain since prostate surgery in about 2007. 2. Psoriasis. 3. Arthritis. 4. Hypercholesterolemia. 5. Restless leg syndrome. 6. Hypertension. 7. Migraine. 8. Borderline diabetes. 9. Abdominal aortic aneurysm. 10. Hyperlipidemia. RECOMMENDATIONS: We discussed treatment options with the patient. At this juncture, we will try a low level of opioids. The patient is having chronic pain. He feels as though he is suffering as a result of radiation to the prostate and bowel complaints. We will have the patient try hydrocodone 5 mg 1 p.o. every 8 hours. The patient will also try Movantik 12.5 mg 1 daily. He does complain of chronic constipation. Hydrocodone being a narcotic could exacerbate his chronic abdominal pain. He will call us if he has any concerns. [address] [address] PAIN MANAGEMENT CONSULTATION Name: JENNY ROBERTS Room: [facility]#: [id number] Admission: 03/03/20 Attend Phys: Luly Dennis MD Discharge: Date of : 37 Report #: [id number] We would like to thank you for letting us participate in his care. We hope he continues to improve. <ELECTRONICALLY SIGNED> By: Luly Dennis MD 03/22/20 1248 05 [id number]. Magdiel Dennis MD /nt
== END ==
LOC: M.PC 12:40
PROVIDERS: ATTEND Anesthesiology Pain Medicine
DX: L40.9 Psoriasis, unspecified (principal); M19.90 Unspecified osteoarthritis, unspecified site; E78.00 Pure hypercholesterolemia, unspecified; E78.5 Hyperlipidemia, unspecified; I10 Essential (primary) hypertension; G25.81 Restless legs syndrome; I71.4 Abdominal aortic aneurysm, without rupture; G43.909 Migraine, unspecified, not intractable, without status migrainosus; R10.9 Unspecified abdominal pain

== ENCOUNTER → 2020-04-26 | Outpatient (CLI) | payer OTHER ==
[~2020-04-26] MED LIST changes: +TRAMADOL 50 MG50 MG PO
== END ==
LOC: M.PC 11:52
PROVIDERS: ATTEND Anesthesiology Pain Medicine
DX: G89.29 Other chronic pain (principal); R10.9 Unspecified abdominal pain; I10 Essential (primary) hypertension; E78.00 Pure hypercholesterolemia, unspecified; G43.909 Migraine, unspecified, not intractable, without status migrainosus; M19.90 Unspecified osteoarthritis, unspecified site; E11.9 Type 2 diabetes mellitus without complications; I71.4 Abdominal aortic aneurysm, without rupture; L40.9 Psoriasis, unspecified; E78.5 Hyperlipidemia, unspecified; Z90.49 Acquired absence of other specified parts of digestive tract; Z68.26 Body mass index [BMI] 26.0-26.9, adult; Z98.890 Other specified postprocedural states; Z79.891 Long term (current) use of opiate analgesic; Z79.899 Other long term (current) drug therapy

== ENCOUNTER → 2020-04-27 | Outpatient (CLI) | payer OTHER | LOC: M.MRI 10:50 | PROVIDERS: ATTEND Orthopaedic Surgery | DX: S43.402A Unspecified sprain of left shoulder joint, initial encounter (principal); M75.102 Unspecified rotator cuff tear or rupture of left shoulder, not specified as traumatic; M75.122 Complete rotator cuff tear or rupture of left shoulder, not specified as traumatic; M19.012 Primary osteoarthritis, left shoulder; X58.XXXA Exposure to other specified factors, initial encounter; Y93.89 Activity, other specified; Y92.89 Other specified places as the place of occurrence of the external cause; Y99.8 Other external cause status ==

== ENCOUNTER → 2020-05-24 | Outpatient (CLI) | payer OTHER ==
[~2020-05-24] MED LIST changes: +PERCOCET 5-3251 EACH PO
== END ==
LOC: M.PC 10:44
PROVIDERS: ATTEND Anesthesiology Pain Medicine
DX: G89.29 Other chronic pain (principal); R10.9 Unspecified abdominal pain; M19.012 Primary osteoarthritis, left shoulder; M19.90 Unspecified osteoarthritis, unspecified site; L40.9 Psoriasis, unspecified; E78.00 Pure hypercholesterolemia, unspecified; I10 Essential (primary) hypertension; G25.81 Restless legs syndrome; G43.909 Migraine, unspecified, not intractable, without status migrainosus; E11.9 Type 2 diabetes mellitus without complications; I71.4 Abdominal aortic aneurysm, without rupture; Z98.890 Other specified postprocedural states; Z68.26 Body mass index [BMI] 26.0-26.9, adult; Z79.891 Long term (current) use of opiate analgesic

== ENCOUNTER → 2020-06-10 | Outpatient (CLI) | payer OTHER ==
[~2020-06-10] MED LIST changes: +ALPRAZOLAM1 MG PO; +CONSTULOSE10 GM/152 PO; +COZAAR 25 MG TA25 M2 PO
[2020-06-10 10:54] LABS: ABSOLUTE BASOPHILS 0.1 thou/uL (0.0-0.2); ABSOLUTE EOSINOPHILS 0.3 thou/uL (0.0-0.7); ABSOLUTE LYMPHOCYTES 1.6 thou/uL (0.8-5.3); ABSOLUTE MONOCYTES 0.9 thou/uL (0.0-1.2); ABSOLUTE NEUTROPHILS 5.2 thou/uL (1.6-8.1); BASOPHILS 1.1 %; EOSINOPHILS 3.7 %; HEMATOCRIT 48.2 % (42.0-52.0); HEMOGLOBIN 16.3 gm/dL (14.0-18.0); LYMPHOCYTES 19.8 %; MCH 31.8 pg (26.0-34.0); MCHC 33.8 g/dL (28.0-37.0); MCV 94.1 fL (80.0-100.0); MONOCYTES 10.6 %; NUCLEATED RBCS 0 /100WBC; PLATELET COUNT* 212 thou/uL (150-400); POLYS 64.8 %; RBC 5.12 mil/uL (4.50-6.00); RDW-CV 12.3 % (10.5-14.5); WBC 8.1 thou/uL (4.0-11.0)
[2020-06-10 11:03] LABS: ALBUMIN 3.9 g/dL (3.4-5.0); CALCIUM 9.4 mg/dL (8.5-10.1); CREATININE 1.3 mg/dL (0.6-1.3); POTASSIUM 3.7 mmol/L (3.5-5.1); TOTAL BILIRUBIN 0.6 mg/dL (<0.1-1.0); TOTAL PROTEIN 7.6 g/dL (6.4-8.2)
[2020-06-10 13:08] LABS: ESR (SEDRATE) 0 mm/hr (0-20)
== END ==
LOC: M.LAB 07:03
PROVIDERS: ATTEND Orthopaedic Surgery
DX: Z01.812 Encounter for preprocedural laboratory examination (principal); Z20.822 Contact with and (suspected) exposure to COVID-19; M19.012 Primary osteoarthritis, left shoulder

== ENCOUNTER → 2020-06-17 | Day surgery (SDC) | payer OTHER ==
[~2020-06-17] VITALS: Ht 170.2 cm; Wt 72.1 kg
[~2020-06-17] MED LIST changes: +OXYCONTIN10 M1 PO
== END | disposition home or self-care (01) ==
LOC: M.PRE 06:52 → M.TBA 09:29 → M.PRE 09:29 → M.LAB 09:29 → M.SUR 09:29 → M.PRE 11:00 → EDSTATUS 11:47 → M.PRE 15:43
PROVIDERS: ATTEND Internal Medicine
DX: M25.512 Pain in left shoulder (principal); Z53.8 Procedure and treatment not carried out for other reasons; I10 Essential (primary) hypertension; E78.5 Hyperlipidemia, unspecified; E78.00 Pure hypercholesterolemia, unspecified; M19.90 Unspecified osteoarthritis, unspecified site; I48.91 Unspecified atrial fibrillation; K21.9 Gastro-esophageal reflux disease without esophagitis; Z98.890 Other specified postprocedural states; Z79.899 Other long term (current) drug therapy; Z79.01 Long term (current) use of anticoagulants

== ENCOUNTER → 2020-08-30 | Outpatient (CLI) | payer OTHER ==
[~2020-08-30] MED LIST changes: +AMBIEN 10 MG TA10 MG PO; +HYDROCODON-ACE1 EAC8 PO; +LINZESS72 MCG PO; +MOVANTIK25 MG PO; +MS CONTIN15 MG PO
== END ==
LOC: M.PC 11:30
PROVIDERS: ATTEND Anesthesiology Pain Medicine
DX: R10.9 Unspecified abdominal pain (principal); M25.512 Pain in left shoulder; E78.5 Hyperlipidemia, unspecified; I70.0 Atherosclerosis of aorta; E11.9 Type 2 diabetes mellitus without complications; G43.909 Migraine, unspecified, not intractable, without status migrainosus; E78.00 Pure hypercholesterolemia, unspecified; L40.9 Psoriasis, unspecified; G89.29 Other chronic pain; G25.81 Restless legs syndrome

== ENCOUNTER → 2020-09-13 | Outpatient (CLI) | payer OTHER ==
[2020-09-13 15:20] LABS: ABSOLUTE BASOPHILS 0.1 thou/uL (0.0-0.2); ABSOLUTE EOSINOPHILS 0.2 thou/uL (0.0-0.7); ABSOLUTE NEUTROPHILS 6.4 thou/uL (1.6-8.1); BASOPHILS 1.2 %; HEMATOCRIT 49.4 % (42.0-52.0); HEMOGLOBIN 16.6 gm/dL (14.0-18.0); LYMPHOCYTES 20.8 %; MCH 30.9 pg (26.0-34.0); MCHC 33.6 g/dL (28.0-37.0); MONOCYTES 10.7 %; MPV 8.6 fl. (7.2-11.1); NUCLEATED RBCS 0 /100WBC; PLATELET COUNT* 222 thou/uL (150-400); POLYS 65.3 %; RBC 5.37 mil/uL (4.50-6.00); RDW-CV 13.2 % (10.5-14.5); WBC 9.8 thou/uL (4.0-11.0)
[2020-09-13 15:36] LABS: ALBUMIN 4.2 g/dL (3.4-5.0); CALCIUM 10.4 mg/dL (8.5-10.1); CREATININE 1.1 mg/dL (0.6-1.3); POTASSIUM 3.9 mmol/L (3.5-5.1); TOTAL BILIRUBIN 0.6 mg/dL (<0.1-1.0); TOTAL PROTEIN 8.4 g/dL (6.4-8.2)
[2020-09-13 16:19] LABS: ESR (SEDRATE) 8 mm/hr (0-20)
[2020-09-15 13:08] LABS: GLOBULIN TOTAL 3.3 g/dL (2.2-3.9); M-SPIKE Not Observed g/dL (Not Observed)
== END ==
LOC: M.LAB 14:55
DX: R10.9 Unspecified abdominal pain (principal); R63.4 Abnormal weight loss

== ENCOUNTER → 2020-09-26 | Outpatient (CLI) | payer OTHER ==
[2020-09-26 13:50] LABS: URINE BILIRUBIN NEGATIVE (Negative); URINE BLOOD NEGATIVE (Negative); URINE CLARITY CLEAR; URINE COLOR YELLOW; URINE GLUCOSE-RANDOM NEGATIVE (Negative); URINE KETONES NEGATIVE (Negative); URINE LEUKOCYTES-REFLEX NEGATIVE (Negative); URINE NITRITE-REFLEX NEGATIVE (Negative); URINE PROTEIN NEGATIVE (Negative); URINE SPECIFIC GRAVITY 1.025 (1.005-1.030); URINE UROBILINOGEN 0.2 E.U./dl (0.2-1.0)
[2020-09-27 21:06] LABS: ANA INTERPRETATION Positive (())
== END ==
LOC: M.LAB 10:39
DX: R77.2 Abnormality of alphafetoprotein (principal); R63.4 Abnormal weight loss; R79.82 Elevated C-reactive protein (CRP); M47.816 Spondylosis without myelopathy or radiculopathy, lumbar region

== ENCOUNTER → 2020-10-06 | Outpatient (CLI) | payer OTHER | LOC: M.PC 10:43 | PROVIDERS: ATTEND Anesthesiology Pain Medicine | DX: M25.512 Pain in left shoulder (principal); R10.9 Unspecified abdominal pain; G89.29 Other chronic pain; M19.012 Primary osteoarthritis, left shoulder; E78.00 Pure hypercholesterolemia, unspecified; I10 Essential (primary) hypertension; E78.5 Hyperlipidemia, unspecified; I71.4 Abdominal aortic aneurysm, without rupture; G43.909 Migraine, unspecified, not intractable, without status migrainosus; G25.81 Restless legs syndrome; L40.9 Psoriasis, unspecified; Z98.890 Other specified postprocedural states; Z87.891 Personal history of nicotine dependence; Z79.82 Long term (current) use of aspirin; Z79.899 Other long term (current) drug therapy ==